=== PATIENT | female | born 1980 | race Caucasian/White ===

== ENCOUNTER 2020-03-26 06:16 | Emergency (ER) | payer BC, OTHER ==
[~2020-03-26] VITALS: Ht 170.2 cm; Wt 81.7 kg
[2020-03-26] MEDS ORDERED: WELLBUTRIN 100100 MG PO (06:42)
[2020-03-26] MEDS ORDERED: AMITRIPTYLINE H10 M1 (06:42)
[2020-03-26 06:44] LABS: ABSOLUTE NEUTROPHILS 12.4 thou/uL (1.4-8.2); BASOPHILS 0.5 % (0.0-2.0); EOSINOPHILS 0.1 % (0.0-3.0); HEMATOCRIT 40.1 % (37.0-47.0); HEMOGLOBIN 13.4 gm/dL (12.0-15.0); LYMPHOCYTES 8.2 % (24.0-44.0); MCH 29.3 pg (26.0-34.0); MCHC 33.5 g/dL (28.0-37.0); MCV 87.4 fL (80.0-100.0); MONOCYTES 2.9 % (1.0-8.0); PLATELET COUNT 310 thou/uL (150-400); POLYS 88.3 % (36.0-66.0); RBC 4.59 mil/uL (4.20-5.00); RDW 14.5 % (10.5-14.5); WBC 14.1 thou/uL (4.0-11.0)
[2020-03-26 06:53] LABS: ANION GAP 13 mmol/L (7-16); BUN 9 mg/dL (7-18); CALCIUM 8.6 mg/dL (8.5-10.1); CHLORIDE 96 mmol/L (98-107); CO2 23 mmol/L (21-32); CREATININE 0.9 mg/dL (0.6-1.0); GLUCOSE 146 mg/dL (74-106); POTASSIUM 3.1 mmol/L (3.5-5.1); SODIUM 132 mmol/L (136-145)
[2020-03-26 07:04] LABS: ALBUMIN 3.9 g/dL (3.4-5.0); LIPASE 78 U/L (73-393); SGOT 15 U/L (15-37); SGPT 23 U/L (14-59); TOTAL BILIRUBIN 0.6 mg/dL (0.2-1.0); TOTAL PROTEIN 7.5 g/dL (6.4-8.2); TROPONIN-I <0.06 ng/mL (<0.06)
[2020-03-26] MEDS ORDERED: BENTYL 10 MG CA10 M1 PO (09:39)
[2020-03-26] MEDS ORDERED: NEXIUM20 MG PO (09:39)
[2020-03-26 09:40] VITALS: BP 113/54
--- NOTE | 2020-03-27 07:21 | EKG ---
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: : 1980 Requested By: Mateo Matos Order Number: [id number] MD: Deandre Tee Measurements Intervals [place] Rate: 94 P: 67 MT: 134 QRS: 56 QRSD: 110 T: 48 QT: 387 QTc: 485 Interpretive Statements Sinus rhythm Probable left atrial enlargement Abnormal inferior Q waves Minimal ST depression, anterolateral leads No previous ECG available for comparison Electronically Signed On 03-27-2020 7:20:46 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
== END 2020-03-26 09:42 | disposition home or self-care (01) ==
LOC: ER 06:16
PROVIDERS: Emergency Medicine
DX: R10.13 Epigastric pain (principal); R10.11 Right upper quadrant pain; Z79.899 Other long term (current) drug therapy; Z88.0 Allergy status to penicillin; Z88.1 Allergy status to other antibiotic agents; Z88.8 Allergy status to other drugs, medicaments and biological substances; Z88.5 Allergy status to narcotic agent; Z88.7 Allergy status to serum and vaccine

== ENCOUNTER 2020-04-26 22:16 | Emergency (ER) | payer BC, OTHER ==
[~2020-04-26] VITALS: Ht 167.6 cm; Wt 104.3 kg
[~2020-04-26 22:16] MED LIST: AMITRIPTYLINE H10 M1; BENTYL 10 MG CA10 M1 PO; NEXIUM20 MG PO; WELLBUTRIN 100100 MG PO
[2020-04-26 23:13] LABS: ABSOLUTE NEUTROPHILS 12.3 thou/uL (1.4-8.2); BASOPHILS 0.3 % (0.0-2.0); HEMATOCRIT 40.4 % (37.0-47.0); HEMOGLOBIN 13.6 gm/dL (12.0-15.0); LYMPHOCYTES 7.7 % (24.0-44.0); MCH 29.2 pg (26.0-34.0); MCHC 33.8 g/dL (28.0-37.0); MCV 86.2 fL (80.0-100.0); MONOCYTES 3.2 % (1.0-8.0); PLATELET COUNT 308 thou/uL (150-400); POLYS 88.8 % (36.0-66.0); RBC 4.68 mil/uL (4.20-5.00); RDW 14.6 % (10.5-14.5); WBC 13.9 thou/uL (4.0-11.0)
[2020-04-26 23:17] LABS: ANION GAP 16 mmol/L (7-16); BUN 7 mg/dL (7-18); CALCIUM 8.8 mg/dL (8.5-10.1); CHLORIDE 99 mmol/L (98-107); CO2 22 mmol/L (21-32); CREATININE 0.7 mg/dL (0.6-1.0); GLUCOSE 173 mg/dL (74-106); POTASSIUM 3.4 mmol/L (3.5-5.1); SODIUM 137 mmol/L (136-145)
[2020-04-26 23:26] LABS: SGOT 15 U/L (15-37); SGPT 19 U/L (30-65); TOTAL BILIRUBIN 0.6 mg/dL (0.2-1.0); TOTAL PROTEIN 7.7 g/dL (6.4-8.2); TROPONIN-I <0.06 ng/mL (<0.06)
[2020-04-27] MEDS ORDERED: ZOFRAN ODT4 MG PO (00:22)
[2020-04-27 00:24] VITALS: BP 131/78
--- NOTE | 2020-04-27 11:22 | EKG ---
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: [facility] : 1980 Requested By: Chauncey Choe Order Number: [id number] MD: Ralf Cueva Measurements Intervals [place] Rate: 64 P: 39 [place]: 142 QRS: 30 QRSD: 112 T: 70 QT: 441 QTc: 455 Interpretive Statements Sinus rhythm Borderline intraventricular conduction delay Compared to ECG 03/26/2020 06:24:47 Inferior Q waves no longer present ST (T wave) deviation no longer present Electronically Signed On 04-27-2020 11:22:01 INSTRUCTOR PHYSICAL EDUCATION by Ralf Cueva [email or web address] <ELECTRONICALLY SIGNED> By: Ralf Cueva MD, [facility] 04/27/20 1122 23 23 Ralf Cueva MD, FACC /EPI
== END 2020-04-27 00:30 | disposition home or self-care (01) ==
LOC: ER 22:16
PROVIDERS: Emergency Medicine
DX: R11.2 Nausea with vomiting, unspecified (principal); Z79.899 Other long term (current) drug therapy; Z88.0 Allergy status to penicillin; Z88.1 Allergy status to other antibiotic agents; Z88.5 Allergy status to narcotic agent; Z88.7 Allergy status to serum and vaccine; Z88.8 Allergy status to other drugs, medicaments and biological substances